=== PATIENT | female | born 1940 | race Caucasian/White ===

== ENCOUNTER 2020-10-02 15:47 | Inpatient (IN) | payer OTHER, MEDICARE ==
[~2020-10-02] VITALS: Ht 149.9 cm; Wt 71.3 kg
--- NOTE | ~2020-10-02 | D ---
[facility] [place] [address] DISCHARGE SUMMARY Name: EDU PICKARD Room #: 51-A [facility] IN M.R.#: [id number] Admission: 10/02/20 Attend Phys: Andres Cruz DO Discharge: 10/22/20 Date of : 40 Report #: [id number] THIS REPORT FOR: cc: CRAIG FARRAR Physician not on staff Andres Cruz DO ~ DATE OF SERVICE: 10/22/2020 INPATIENT PSYCHIATRIC DISCHARGE SUMMARY HOSPITAL COURSE: Please note, the patient was discharged emergently shortly before 5:00 a.m. on 10/22/2020, due to concern for sudden respiratory failure, so there is no discharge mental status exam. ATTENDING AT THE TIME OF DISCHARGE: Hailey Pruitt MD ATTENDING AT THE TIME OF ADMISSION: Andres Cruz DO SOLAR ELECTRIC/PHOTOVOLTAIC INSTALLER ON THE DAY OF DISCHARGE: Shaye Puga MD DISCHARGE DIAGNOSES: Include COVID-19 positive, showing signs of fulminant acute respiratory failure, major neurocognitive disorder, likely Alzheimer's pathology with behavioral disturbance, some improvement. Other morbidities include bronchitis, elevated D-dimer, venous Doppler was negative, chronic kidney disease, stage III, wounds on bilateral leg, rash for 2-3 years. The patient refusing steroid treatment, although she is to start topical steroid, both feet with recent surgery, bilateral shoulder pain, intermittent, diabetes mellitus type 2, hypothyroidism, hypertension. The patient is a no code. The patient was discharged to [address] [place] [address]. Diet and medications will be per the hospitalist. Of note, during the psychiatric admission, the patient was treated with the following: clotrimazole to her perineum and buttocks, olanzapine 7.5 mg p.o. b.i.d., Depakote 750 mg p.o. at bedtime, donepezil 10 mg p.o. at bedtime, methotrexate 7.5 mg weekly. The donepezil, Depakote, olanzapine were all for her dementia and accompanying behavioral disturbance. Also, levothyroxine 100 mcg oral daily, vitamin, calcium with vitamin D, ferrous sulfate, tramadol p.r.n., Pulmicort 0.5 mg inhaled twice daily. SIGNIFICANT LABORATORY RESULTS: This admission are as follows: Last hematology on 10/22/2020, would be H and H 7.3 and 32.3, white count 2.4, platelet count 76. Coags this admission would be INR 1.0, PT 10.1, D-dimer quantitative 4.32. Chemistry this admissions, most recent one, sodium 143, potassium 4.8, chloride 104, bicarbonate 37, anion gap 2, BUN 17, creatinine 1.2. I believe the creatinine had been as high as 1.7 on 09/16/2020, which is actually an improvement. GFR 43. Point of care glucose 139, A1c 6.1. Lactic acid 1.8, calcium 8, magnesium 1.7, total bilirubin 0.5, AST 27, ALT 18, alkaline phosphatase 96. Ammonia less than 10. CK, previous admission, her CK; albumin 2.5. She is quite malnourished. Triglycerides 112, cholesterol 99, LDL 33, HDL [address] [address] DISCHARGE SUMMARY Name: EDU PICKARD Room #: 518A-A [facility] IN M.R.#: [id number] Admission: 08/18/21 Attend Phys: Andres Cruz, DO Discharge: 10/22/20 Date of : 40 Report #: [id number] 44. B12 525. TSH slightly elevated, done on 10/03/2020, 21.166. Urinalysis, most recently on 10/06/2020, showed 1+ protein, trace ketones, 1+ blood. It did have some other abnormalities including bacteria. Culture done on 10/06/2020, showed 3 or more organisms, isolated, results consistent with colonization or contamination. REASON FOR ADMISSION: Back on 10/02/2020 or so is as follows: An 80-year-old female, sent over from [facility]. The patient had been refusing recommendations, not eating or drinking, having agitated outbursts. There was a question of dementia. HOSPITAL COURSE: The patient was admitted to the geriatric psychiatry unit. It quickly became apparent that the patient had at least mild dementia, could not take care of herself. We ran into quite a challenge. Even though her son is her DPOA of the patient, needing Medicaid replacement and facilities have been unable to take her. I did utilize an olanzapine and Depakote approach to stabilize her mood. This was mapped with mixed results. Overall, after the first 10 days in the hospital, staff did notice improvement. She was less irritable, more compliant. Unfortunately, the patient appears to have developed COVID-19 during her admission. She had a PCR done on 10/21/2020, which resulted early in the morning of being positive. She had developed bronchitis symptoms a couple of days before that test and she was discharged to the medical floor due to her oxygen requirements. VITAL SIGNS: At the time of discharge would be, and actually this is at 5:00 a.m., early this morning. So, temperature 97.7, pulse 78, respirations 20, BP 115/43, O2 sat 93%, and it appears to be on room air. PROGNOSIS: For this patient is quite guarded due to her multiple morbidities, dementia, COVID-19. The psychiatry service can serve and consult at the hospitalist's request. By: 2114 [id number] Andres Cruz, DO /nt
[~2020-10-02 15:47] MED LIST: ADVAIR 100-501 EACH BUCCAL; ASPIRIN EC81 M1; ATENOLOL 25 MG25 M1 PO; CALCIUM 600 +1 EAC1 PO; CELEBREX 200 M200 M1 PO; CELEBREX 200 M200 MG PO; COZAAR 50 MG TA50 M2 PO; DIPHENHIST50 MG PO; FIBER625 MG PO; FLONASE 0.05%50 MCG NASAL; FOSAMAX 70 MG T70 M1; GAS-X125 MG PO; GLUCOPHAGE XR500 MG; HYDRALAZINE 5050 MG PO; HYDROCHLOROTHIA25 M2 PO; IRON325 PO; KEFLEX500 MG PO; LISINOPRIL5 MG; LOPERAMIDE 2 MG2 M1 PO; LOPRESSOR25 PO; METFORMIN HCL500 MG PO; NEURONTIN 300300 M1 PO; NEURONTIN600 MG; NEXIUM40 MG PO; SERTRALINE HCL50 MG PO; SYNTHROID50 MCG PO; TRAMADOL 50 MG50 MG PO; ZOCOR 20 MG TAB20 M1 PO
[2020-10-02 22:45] VITALS: BP 162/78
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
[2020-10-03 08:04] LABS: CHOLESTEROL 99 mg/dL (<200); HDL CHOLESTEROL 44 mg/dL (>40); LDL CHOLESTEROL 33 mg/dL (<100); TC:HDL 2.3 Ratio (Not establshd); TRIGLYCERIDE 112 mg/dL (<150); VLDL 22 mg/dL (<40)
[2020-10-03 09:21] VITALS: BP 127/71
--- NOTE | 2020-10-03 11:17 | NUR ---
Care assumed of patient at 0715: Patient seated in dayroom at start of shift. Patient presents with flat affect. Alert and oriented x4. Reports anxiety and depression rated 8/10. Reports that she is here for "help with that". Reports pain to her shoulders due to arthritis. Requested Tramadol which she was taking at home. Order obtained for PRN Tramadol. Medication provided. Patient also reports nausea. Reports she is nauseous "all the time". Poor appetite for breakfast. Participated in morning group. Patient became upset when told that a wound physician would come to see her, states that she only sees her guest specialist for her feet. Feet are currently wrapped bilaterally.
[2020-10-03 19:38] VITALS: BP 97/68
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
[2020-10-04 00:06] LABS: GLYCOHEMOGLOBIN (HGB A1C) 6.1 % (4.8-5.6)
[2020-10-04 09:07] VITALS: BP 128/72
[2020-10-04 10:54] VITALS: BP 127/72
[2020-10-04] MEDS ORDERED: ARICEPT10 M1 PO (11:35)
[2020-10-04] MEDS ORDERED: FOLIC ACID1 MG PO (11:35)
[2020-10-04] MEDS ORDERED: LEVOTHYROXINE88 MC1 PO (11:35)
[2020-10-04] MEDS ORDERED: NEXIUM 40 MG CA40 M1 PO (11:39)
[2020-10-04] MEDS ORDERED: CITALOPRAM HBR40 MG PO (11:39)
[2020-10-04] MEDS ORDERED: MELOXICAM15 MG PO (11:40)
[2020-10-04] MEDS ORDERED: METHOTREXATE 22.5 M1 PO (11:40)
[2020-10-04] MEDS ORDERED: NAMENDA 10 MG T10 MG PO (11:40)
--- NOTE | 2020-10-04 12:40 | NUR ---
1240 RESUMMED CARE FROM OVERNIGHT SHIFT THIS AM, PATIENT IN DAY ROOM COMPLAINING ABOUT THE BREAKFAST. PATIENT ALERT ORIENTED TIMES 4 PATIENT DENIES SI/HI/AH/VH AT PRESENT. PATIENT DOES HAVE DEPRESSION SHE RATES IT A 4 ANXIETY A 10. PATIENTS ABDOMEN SOFT BOWEL SOUNDS PRESENT PATIENTS LUNGS CLEAR PATIENT IS COUGHING LESS WITH BREATHING TREATMENT. PATIENT IS CONSTANTLY COMPLAINING ABOUT EVERYTHING; I TALKED WITH PATIENT AND TOLD HER TO STOP COMPLAINING AND BE GRATEFUL SHE IS GETTING CARES. PATIENT SAT IN GROUP BUT IS NOT REALLY PARTICIPATING. WOUND CARE CAME AND SAW PATIENTS FEET WILL CONTINUE TO MONITOR PATIENT FOR BEHAVIORS AND SAFETY.
[2020-10-04 20:14] VITALS: BP 151/66
--- NOTE | 2020-10-05 00:22 | NUR ---
PATIENT IN COMMON AREA AAOX3. PATIENT IS IRRITABLE AND FUSSING AT SHALE MINER BLASTING. PATIENT STATES THAT SHE IS HAVING SOME PAIN TO HER FEET AND BACK. PRN MEDICATION ADMINISTERED. PT IS ABLE TO CALM DOWN WHEN RN SPEAKS WITH HER. SHE IS COMPLIANT WITH HER MEDICATIONS. STATES THAT SHE IS READY FOR BED. PATIENT IS INCONTINENT AND STAFF ASSISTS HER WITH CLOTHING CHANGE. NO S/S OF DISTRESS NOTED. WILL CONTINUE TO MONITOR.
[2020-10-05 10:34] VITALS: BP 151/66
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
--- NOTE | 2020-10-05 12:31 | NUR ---
Patient care resummed at 0700, patient laying in bed, refused to get up for breakfast, varbally aggressive and disrespecfull to staff, assessment took like an hour because she constantly complained about everything, her lungs are clear, active bowel sound, she is incontinent of bladder and bm, she ambulate on dayo chair/wheel chair, got her up for lunch but she complained about the food. Denied si/hi at this time. will continue to monitor patient
--- NOTE | 2020-10-05 16:21 | NUR ---
artificial marble worker met with pt. in dayroom. Pt. expressed having pain and not having heard from anyone to have the pain addressed. Pt. wants to go to a half-way. When asked what half-way she would like to go to, pt. stated [facility]. Pt. stated she was previously there and liked it. Pt. states she was also previously at [facility] and did not like it there and would not go back.
[2020-10-05 19:29] VITALS: BP 116/65
--- NOTE | 2020-10-06 04:55 | NUR ---
Assumed pt's care this pm shift. Pt alert and oriented. Cooperative with assessment and medication. Easily irritable. Pt declined wound care this shift. Voicing " I do not want you touching it". Pt remained in bed, refused to turn. Fall precaution in place. Will continue to monitor.
[2020-10-06 09:17] VITALS: BP 130/68
[2020-10-06 09:45] LABS: URINE BILIRUBIN NEGATIVE (Negative); URINE BLOOD 1+ (Negative); URINE CLARITY CLOUDY; URINE COLOR YELLOW; URINE GLUCOSE-RANDOM* NEGATIVE (Negative); URINE KETONES TRACE (Negative); URINE LEUKOCYTES-REFLEX 3+ (Negative); URINE NITRITE-REFLEX NEGATIVE (Negative); URINE PROTEIN (DIPSTICK) 1+ (Negative); URINE UROBILINOGEN 0.2 E.U./dl (0.2-1.0)
[2020-10-06 10:04] LABS: CASTS None Seen /LPF (None Seen); SQUAMOUS >10 Many /LPF (0-3); URINE RBC 3-10 Few /HPF (NONE SEEN); URINE WBC-REFLEX 6-15 Few /HPF (0-5)
[2020-10-06 10:05] LABS: BACTERIA-REFLEX 1-9 Few /HPF (None Seen); CRYSTALS None Seen /LPF (None Seen)
[2020-10-06 10:19] VITALS: BP 130/68
--- NOTE | 2020-10-06 12:58 | NUR ---
1258 RESUMMED CARE FROM OVERNIGHT SHIFT THIS AM, PATIENT IN ROOM COMPLAINING ABOUT EVERYTHING. PATIENT DID NOT WANT TO GET PUT OF BED STATES SHE HURTS TO BAD. PATIENT WOULD NOT LET ME CHANGE THE BANDAGES ON FEET SHE STATES HER AUTOMOBILE SALESMAN; STATES THE BANDAGES CANNOT BE CHANGED BECAUSE OF THE SKIN GRAFTS. PATIENT ALERT ORIENTED TIMES 4 PATIENT DENIES SI/HI/AH/VH AT PRESENT. PATIENTS ABDOMEN SOFT BOWEL SOUNDS PRESENT. PATIENT IS VERY DISRESPECTFUL TO STAFF I TRIED TO APPEASE PATIENT SHE COMPLAINS ABOUT THE FOOD, TELLS US NOT TO BOTHER HER. SHE STATES THIS HOSPITAL IS [facility] AND SHE WANTS TO GET OUT OF HERE PATIENT DOES NOT PARTICIPATE IN GROUPS. WILL CONTINUE TO MONITOR PATIENT FOR SAFETY AND BEHAVIORS.
[2020-10-06 19:57] VITALS: BP 120/65
--- NOTE | 2020-10-07 01:49 | NUR ---
Assumed pt's care beginning of this pm shift. Pt was in her room laying on her bed from beginning of shift. Irritable and fuzzy but cooperative with assessment and medication. Pt declined wound care again this shift, voicing that it had to be changed by her life insurance sales agent. Nursing educated pt that wound care orders are in place for nurses to change the dressing. Pt still declined care. Pt complained of pain to bilateral feet. Tramadol given. Pt remains in bed, sleeping. Fall precautions in place.
--- NOTE | 2020-10-07 11:00 | HC ---
[facility] [place] [address] CONSULTATION Name: EDU PICKARD Room #: 518A-A ADM IN M.R.#: [id number] Admission: 10/02/20 Attend Phys: Andres Cruz DO Discharge: Date of : 40 Report #: [id number] THIS REPORT FOR: cc: CRAIG FARRAR Physician not on staff Jesus Alberto Cano MD ~ DATE OF SERVICE: 10/03/2020 CHIEF COMPLAINT: Bilateral toe ulcerations. HISTORY OF PRESENT ILLNESS: This is an 80-year-old female patient who was admitted to the geriatric psych unit for aggression and suicidal ideation. She has been declared incompetent to make her own decisions by the psychiatrist, Dr. Cruz here at [facility]. She has had a history of diabetic ulcers to the right second toe and a surgical incision to her left medial foot. I have been asked to see her with regard to wound care. The patient has been reluctant to allow any dressing changes or even examination of her feet. However, Dr. Cruz, the psychiatrist had a conference phone call with the patient's son and DPOA, who specifically authorized and requested that her feet be cared for while here at the hospital. 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 ALLERGIES: No known drug allergies. MEDICATIONS: vitamins, atorvastatin, calcium and vitamin D, ferrous sulfate, fluticasone nasal spray, tramadol, budesonide, levothyroxine, acetaminophen, and ondansetron. ALLERGIES: None. FAMILY HISTORY: Unknown. REVIEW OF SYSTEMS: Not obtainable as the patient has significant dementia and agitation and is uncooperative. PHYSICAL EXAMINATION: VITAL SIGNS: The patient's vital signs at this time include temperature 36.3, pulse 88, respiration of 17, and blood pressure of 127/71. GENERAL: This is a chronically ill-appearing female patient who appears to be older than her stated age. HEENT: Head normocephalic. Nose and throat are clear. NECK: Supple. [facility] [address] [place] [address] CONSULTATION Name: EDU PICKARD Room #: 518A-A ADM IN [facility].#: [id number] Admission: 10/02/20 Attend Phys: Andres Cruz DO Discharge: Date of : 40 Report #: [id number] LUNGS: Diminished. HEART: Irregular. ABDOMEN: Soft. EXTREMITIES: Lower extremities demonstrate palpable distal pulses and the feet are warm and dry. She has a diabetic type ulceration to the dorsal aspect of the right second toe. She appears to have a closed surgical incision to her left medial foot, does not appear to be infected or draining. LABORATORY DATA: Include glucose 127, triglycerides 112, cholesterol 99. TSH of 21.1. CLINICAL IMPRESSION: 1. Diabetic ulceration, the right second toe. 2. Surgical incision of left foot appears to be closed. 3. Alzheimer dementia with aggressive features. 4. Anxiety, depression. 5. Hypertension. 6. Hyperlipidemia. 7. Significant hypothyroidism. 8. Type 2 diabetes mellitus. RECOMMENDATIONS: At this point in time, we will recommend moisturizer to dry skin of both lower extremities and then Xeroform to the ulcer with Kerlix and tape to be changed daily. The left foot can be simply observed. We are going to leave the Steri-Strips in place and then elevate to maximize edema control. She will need aggressive nutritional support. Internal medicine is following her other medical issues. I appreciate being asked to see her in consultation. <ELECTRONICALLY SIGNED> By: Jesus Alberto Cano MD 10/07/20 1100 [id number] Jesus Alberto Cano MD /nt
[2020-10-07 11:04] VITALS: BP 138/82
--- NOTE | 2020-10-07 12:20 | NUR ---
1220 RESUMMED CARE FROM OVERNIGHT SHIFT THIS AM, PATIENT SITTING IN THE DAY ROOM COMPLAINING LOUDLY. PATIENT ALERT ORIENTED TIMES 4 SHE IS DIFFICULT TO WORK WITH. PATIENT REFUSED HER 11:00 DOSE OF OLANZAPINE SO IM BACKUP GIVEN; I TOLD PATIENT I WILL BE CHANGING HER BANDAGES ON HER FEET. PATIENT START YELLING IN THE DAY ROOM AND UPSETTING THE OTHER PATIENTS. PATIENTS ABDOMEN SOFT BOWEL SOUNDS PRESENT PATIENTS LUNGS CLEAR. PATIENT IS VERY DISRESPECTFUL TO STAFF AND ALWAYS THREATEN TO [place] US. WILL CONTINUE TO MONITOR PATIENT FOR SAFETY AND BEHAVIORS.
[2020-10-07 20:10] VITALS: BP 125/70
[2020-10-07 20:19] VITALS: BP 125/70
--- NOTE | 2020-10-08 05:16 | NUR ---
PATIENT SAT UP IN DINING ROOM IN [place]AIR THIS PAST EVENING. SHE HAD AN HS SNACK. SHE TOOK HER MEDS WHOLE WITH WATER AND WITHOUT INCIDENT. PATIENT REQUESTED TO GO TO BED AFTER MEDS WERE TAKEN. PATIENT IS ASSIST X 2-3. SHE IS UNABLE TO BEAR MUCH WEIGHT. SHE HAS DRESSINGS ON BILATERAL FEET WITH DRESSING CHANGE DAILY. PATIENT IS INCONTINENT. SHE IS A/0X3-4. SHE DENIES PAIN, SI/HI/AVH. PT RESTING IN BED WITH EYES CLOSED. BED IN LOW POSITION AND BED ALARM IS ON. CONTINUING TO MONITOR.
[2020-10-08 07:35] VITALS: BP 121/60
--- NOTE | 2020-10-08 12:46 | NUR ---
Resummed patient care 0700, patient was still in bed sleeping, refused to get up for breakfast, she was irritable during assessment, active bowel sound, breath sound clear, regular heart rate, color pink with brisk capillary refill she took her medication whole, got her clear up, wound chanaged as ordered, patient refused to eat lunch. She ambulate with walker/dayo chair, incontinent of bladder and bowel. denied pain, si/hi, fall precaution in place, will continue to monitor for safety
--- NOTE | 2020-10-08 13:24 | NUR ---
APS worker Josie, called to inquire about patient. Had received calls on patient prior to hospitalization in regard to her well-being. Reviewed case with Josie. Stated a a SW from patient's PCP (Dr. Truong) thought that Eric Montano expressed interested in her once she has been discharged. automotive worker's name is Luann Abbott at [facility] [phone]
[2020-10-08 20:10] VITALS: BP 115/81
[2020-10-08 20:33] VITALS: BP 115/81
--- NOTE | 2020-10-09 01:28 | NUR ---
PATIENT HAS BEEN IN BED SINCE BEGINNING OF THE SHIFT. SHE HAS BEEN COMPLAINING AND DEMANDING. WHEN YOU GIVE HER SOMETHING SHE ASKED FOR THEN SHE COMPLAINED THAT IS WAS ALL WRONG AND NOTHING IS DONE RIGHT. SHE DENIES PAIN, SI/HI/AVH. PATIENT REPOSITIONED. BARRIER CREAM PLACED ON BUTTOCKS D/T PRESSURE ABRAISION. PATIENT DID NOT LET THIS NURSE TOUCH HER FEET TONIGHT. SHE WAS VERY HATEFUL VERBALLY. ICE WATER PLACED BY PATIENT'S BEDSIDE SO SHE CAN REACH NEEDED. SHE DID TAKE HER PILLS WHOLE WITH WATER. BED IN LOW POSITON AND BED ALARM IS ON. ROUTINE ROUNDS TO ASSESS SAFETY AND STATUS OF PATIENT.
--- NOTE | 2020-10-09 06:51 | NUR ---
PATIENT HAS 2 DENUDED AREAS ON BUTTOCKS FROM IRRITATION. AREAS CLEANED THRU NIGHT DURING INCONTINENCE CARES AND BARRIER CREAM APPLIED. AT THIS 0600 CHECK AREA HAD SMALL AMOUNT OF BLOOD NOTED. PATIENT WITH REDNESS ALSO IN GROIN AREA AND ABDOMINAL FLAP WHICH CONTINUES TO BE WASHED, CLEANED AND BARRIER CREAM APPLIED. UNDER BILATERAL BREAST TREATED ALSO.
[2020-10-09 09:39] VITALS: BP 125/51
--- NOTE | 2020-10-09 13:11 | NUR ---
PATIENT WAS IN BED ASLEEP WHEN CARE ASSUMED, SHE DECLINE TO GET OUT OF BED FOR BREAKFAST. MORNING MEDICATION GIVEN AT BED SIDE, WELL TOLERATED. PATIENT DENIES SUICIDAL IDEATION, CHOOSE NOT TO RESPOND TO FURTHER ASSESSMENT QUESTIONS. PATIENT IS RUDE, HOSTILE, VERBALLY ABUSIVE TOWARDS THIS NURSE, SHE DECLINE WOUND CARE, "I DON'T WANT YOU TO LOOK AT MY LEGS, OR TOUCH THEM, ITS MY RIGHT". PATIENT IS REALLY IRRITABLE "WHO WANT TO BE IN THIS HALF-WAY". PATIENT REDIRECTED THAT SHE IS IN THE HOSPITAL, AND NOT HALF-WAY. SHE LATER AGREED TO GET OUT OF BED FOR LUNCH, STILL CONTINUE TO DECLINE WOUND CARE. SHE WAS ASSISTED TO [facility] BY THIS SURGICAL COORDINATOR, AND ANOTHER STAFF. AFFECT IS SAD/FLAT, MOOD IS IRRITABLE/HOSTILE. NO SIGN OF ACUTE DISTRESS NOTED AT THIS TIME, WILL CONTINUE TO REDIRECT, AND MONITOR FOR SAFETY.
[2020-10-09 19:59] VITALS: BP 145/108
--- NOTE | 2020-10-10 04:52 | NUR ---
PATIENT RESTING IN COMMON AREA AAOX3. PATIENT HAS MANY COMPLAINTS REGARDING HER INCONTINANCE. SHE COMPLAINS OF PAIN TO HER NECK AND BACK. SHE IS COMPLIANT WITH HER MEDICATIONS. STATES THAT SHE DOES NOT KNOW WHY SHE WAS ADMITTED HERE THAT SHE IS NOT PSYCHOTIC. ASKED PATIENT IF STAFF COULD LOOK AT HER FEET WOUNDS. PT SAID THAT NOBODY CAN LOOK OR TOUCH HER FEET BECAUSE HER DOCTOR TOLD HER SO. VITAL SIGNS STABLE. WILL CONTINUE TO MONITOR FOR CHANGES IN STATUS.
[2020-10-10 09:32] VITALS: BP 121/91
--- NOTE | 2020-10-10 10:57 | NUR ---
RT Progress Note- Nikki has been limited in participation in the milieu and recreation therapy groups throughout her first week of admission. Danna is often uncooperative and rude to staff which is disruptive to the group if she is willing to attend. She speaks over other patients and is unwilling to allow for redirection. During one to one attempts, she is quick to anger when each need she demands cannot be met such as "fix my back, call my toe doctor, get me a pain pill." Though she is highly uncooperative, she has participated in a very small amount of groups and appears to enjoy listening to some music such as Gayle Hunter as well as reminisce about younger years. Recreation Therapy team will continue to encourage further positive participation and progress towards goals.
--- NOTE | 2020-10-10 11:19 | NUR ---
Dressings changed to bilateral feet. Patient consistently refusing despite orders and DPOA being activated. APPLIQUE SEWER and RN were able to change dressings and apply liberal amount of lotion to bilateral lower extremities. Weekly picture taken and placed in chart. Graft in place with steri strips to left foot. Stretch gauze changed to re-enforce graft dressing. Open are to right foot 2nd toe cleansed, Xeroform applied and wrapped with stretch gauze. Granulation present to wound bed. No drainage present. Appears to have improved. Dressings intact. Patient tolerated well.
--- NOTE | 2020-10-10 13:48 | NUR ---
Alert and orientated to person, place and year. Adamantly refusing to have wound dressings changed this AM. Becomes agitated. Elana, nurse finance effectiveness manager cleaned wounds, took pictures and did drsg changes. Denies SI/HI. Breath sounds clear. Reg HR auscultated. Color pink with brisk capillary refill and palpable peripheral pulses with exception of pedal pulses which she refused to be assessed. Incontinent of yellow urine per pad, changed. Active bowel sounds over soft, rounded abdomen, continent of BM later in AM. Top layer of skin excoriated on buttocks, cleaned and Zpaste applied. Able to bear wt for several seconds, requires assist of 2 staff to get to chair and toilet. Son and DPOA called for update. States he would like to talk to pt around 5 PM when he has more time. Pt states she has buttock pain, knee pain and shoulder pain, rates it an 8. Tramadol given PO. Pt appears more comfortable and sleepy but states pain remains an 8. Currently in day room visiting with animals.
[2020-10-10 20:10] VITALS: BP 136/95
--- NOTE | 2020-10-11 01:13 | NUR ---
PATIENT RESTING IN ACTIVITY AREA TALKING ON THE PHONE. PATIENT WAS BEING LOUD AND DRUDE TO WHOMEVER SHE WAS TALKING TO. PATIENT CONTINUES TO BE IRRITABLE AND AGITATED. VOICES COMPLAINTS WITH HIGH FREQUENCY. SHE STATES THAT SHE IS GETTING OUT OF HERE IN THE MORNING COME HELL OR HIGH WATER. SHE WAS CONPLIANT WITH HER MEDICATION BUT STATES THAT THEY ARE NOT DOING ANYTHING FOR HER. CONTINUES TO COMPLIAIN OF PAIN TO LEGS, NACK AND NOW BACK.
[2020-10-11 09:23] VITALS: BP 111/42
--- NOTE | 2020-10-11 16:37 | NUR ---
Alert and orientated X3-4. Denies SI/HI. States buttocks hurt, Tramadol given PO. Irritated and frustrated, yelling at staff at times. Breath sounds clear. Reg HR auscultated. Color pale pink with brisk capillary refill and palpable peripheral pulses. Incontinent of yellow urine and medium brown stool. Area from posterior end of external labia to upper buttocks excoriated peeling in places and with erythema, photographed and placed in chart. Cleaned with NS and barrier cream applied. Dr. Cruz notified, consulted with wound team. Wound team assessed and orders placed. Fungal cream applied and waffle cushion place. Active bowel sounds over large, rounded abdomen. Able to stand and bear wt with assistance of 1-2 staff. Currently sleeping in recliner in day room without s/o distress.
[2020-10-11 19:31] VITALS: BP 134/63
[2020-10-11 22:43] VITALS: BP 134/63
--- NOTE | 2020-10-12 00:19 | NUR ---
Pt is sleepy this shift, she did not take her medication, she would wake up but would go right back to sleep, pt is turned Q 2hours, with frequent monitoring.
[2020-10-12 09:05] VITALS: BP 152/92
--- NOTE | 2020-10-12 13:58 | NUR ---
Alert and orientated X3. Denies SI/HI. States bottom feels much better this AM until she sat in chair, then pain returned. Given scheduled Tylenol with good results. Offered to lay her down after group until lunch but she refused. Fussy and demanding at times. Spoke with daughter at length via phone. Breath sounds clear. Reg HR auscultated. Color pink with brisk capillary refill and palpable peripheral pulses. Incontinent of yellow urine X3 and smear of stool. Buttocks excoriated with several areas of ulceration, slightly less red than yesterday. Cleaned with NS and antifungal cream/zpaste applied. Ulcer per R middle toe cleaned with NS, xeroform and kerlix applied. Steristrips dry and intact per L foot, kerlix applied. Lotion applied to lower legs bilaterally prior to applying kerlix. Currently sitting in dining room watching TV with peers.
[2020-10-12 19:59] VITALS: BP 123/76
--- NOTE | 2020-10-13 02:55 | NUR ---
PATIENT RESTING IN COMMON AREA AAOX3. STATES THAT SHE IS HAVING PAIN AGAIN TO HER BOTTOM. PT STATES THAT SHE IS TIRED OF THAT AREA HURTING. PATIENT WAS COMPLIANT WITH HER MEDICATIONS. PATIENT WAS HELPED TO HER ROOM TO BE CLEANED UP. NOTED EXCORIATION TO INGUINAL AREA WELL SKIN BREAKDOWN TO BOTTOM THAT NOW EXHIBITS SOME MILD BLEEDING. AREA WAS CLEANSED AND BARRIER CREAM WAS APPLIED. PT DENIES ANY OTHER NEEDS. WILL CONTINUE TO MONITOR PATIENT FOR CHANGES IN STATUS.
--- NOTE | 2020-10-13 18:50 | NUR ---
RESISTIVE WITH GETTING UP OUT OF BED THIS AM-WHEN IN CHAIR WANTS TO BE IN BED-WHEN IN BED YELLING SHE WANTS TO BE IN CHAIR-MULTIPLE COMPLAINTSA AND NEGATIVE COMMENTS RE FOOD,STAFF,SCHEDULE ETC-REPOSITIONED FOR COMOFRT Q 2 HOURS -BARRIER CREAM APPLIED-MULTIPLE SMALL LOOSE STOOLS CAUSING INCREASED REDNESS AND IRRITATION. DID TAKE ULTRAM 50MG PO PRN FOR REPORTED COCYX PAIN AT 1700
[2020-10-13 19:54] VITALS: BP 121/65
[2020-10-13 20:30] VITALS: BP 121/65
--- NOTE | 2020-10-14 03:46 | NUR ---
PATIENT HAS BEEN IN BED SINCE BEGINNING OF SHIFT. SHE SAT UP IN BED TO TAKE HER HS MEDS WHOLE WITH WATER. PATIENT DID NOT WANT NURSE TO TOUCH HER FEET AND STATES THEY ARE FINE. SHE HAS DRESSING ON BILATERAL TOES DRY AND INTACT. HER OSMANI AREA AND BUTTOCKS WITH SOME DENUDING FROM YEAST, PRESSURE FROM SITTING AND LAYING. FUNGAL CREAM, AND SCHEDULED OINTMENT APPLIED. FREQUENT INCONTINENCE CHECKS DONE TO KEEP AREA CLEAN. PATIENT WAS CALM AND COOPERATIVE FOR THE MOST PART. SHE STATES SHE IS FRUSTRATED THAT SHE IS STILL HERE. PATIENT HAS BEEN SLEEPING MOST OF NIGHT. DENIES SI/HI/AVH. SCHEDULED TYLENOL FOR DISCOMFORT. BED IN LOW POSITION AND BED ALARM IS ON.
[2020-10-14 10:13] VITALS: BP 122/68
[2020-10-14 10:14] VITALS: BP 122/68
--- NOTE | 2020-10-14 10:20 | NUR ---
1020 assumed care of pt from overnight nurse. pt alert times 2. pt ate breakfast and took am nedications w no issue. pt has daily wound dressings to feet. pt has non productive cough. pt incont times 1. pt on carb control diet. pt ast of 2 and gerichair. will cont to monitor for safety and infection.
--- NOTE | 2020-10-14 18:41 | NUR ---
1700 PT REFUSED TO HAVE HER DRESSING CHANGES TO BOTH FEET. THIS NURSE ATTEMPTED TO CHANGE DRESSINGS TIMES 3. WILL CONT TO ASSESS PT FOR NEEDS AND SAFETY.
[2020-10-14 20:09] VITALS: BP 108/56
--- NOTE | 2020-10-14 23:09 | NUR ---
PATIENT RESTING IN COMMON AREA AAOX3. STATES THAT HER BUTTOCK HAS BEEN FEELING BETTER BUT IS HURTING 8/10 AT THIS TIME. STATES THATS SHE WESLEY SNOT FEEL THAT SHE IS GETTING ANY BETTER. STATES THAT HER MEDICATIONS KEEP GETTING CHANGED. NOTICED PATIENT TALKING TO HERSELF ON A COUPLE OF OCCASSIONS TONIGHT. WHEN ASKED IF SHE WAS TALKING TO SOMEBODY SHE STATES THAT SHE WASNT TALKING. AT ONE POINT SHE WAS HEARD TALKING ABOUT A CHEESEBURGER. PT EXHIBITS NO S/S OF DISTRESS. WILL CONTINUE TO MONITOR FOR CHANGES IN STATUS.
[2020-10-15 10:11] VITALS: BP 147/67
[2020-10-15 11:48] VITALS: BP 156/76
--- NOTE | 2020-10-15 12:35 | NUR ---
1235 RESUMMED CARE FROM OVERNIGHT SHIFT THIS AM, PATIENT IN ROOM QUIET. WE GOT PATIENT UP FOR BREAKFAST TOOK MEDICATION WITHOUT INCIDENCE. PATIENT ALERT ORIENTED TIMES 4 PATIENT STATES SHE FEELS HOPELESS AND JUST WANTS TO GET OUT OF HERE. PATIENT DENIES SI/HI/AH/VH AT PRESENT PATIENT DOES HAVE ANXIETY AND DEPRESSION SHE RATES A 6. PATIENTS ABDOMEN SOFT BOWEL SOUNDS PRESENT PATIENTS LUNGS CLEAR. PATIENT IS SOMETIMES FUSSY SHE DOES PARTICIPATE A LITTLE IN GROUPS. WILL CONTINUE TO MONITOR PATIENT FOR SAFETY AND BEHAVIORS.
[2020-10-15 20:13] VITALS: BP 125/78
--- NOTE | 2020-10-16 03:52 | NUR ---
PATIENT RESTING IN THE COMMON AREA WATCHING TV. PATIENT IS MORE RELAXED THIS EVENING. SHE STATES THAT SHE IS HAVING PAIN 6/10 TO HER BOTTOM. SHE TOOK MEDICATIONS WITHOUT PROMPTS TONIGHT. DID NOT MAKE ANY NEGATIVE COMMENTS TOWARDS PEERS OR STAFF. WENT TO BED AROUND 2100 AND WAS ABLE TO SLEEP THROUGH THE NIGHT. NO EVIDENCE OF NIGHT TERRORS OR TALKING IN HER SLEEP NOTED TONIGHT.
[2020-10-16 08:57] VITALS: BP 106/65
--- NOTE | 2020-10-16 11:43 | NUR ---
RT Progress Note- Nikki has remained present in the milieu, but does not actively engage with peers. She is present in most recreation therapy groups but also does not actively engage in programming. Nikki does not readily welcome conversation and social interaction which seems to be her baseline at this time. BUSINESS SPECIALIST will continue to encourage patient's presence in groups and provide activity she can be benefited by listening.
--- NOTE | 2020-10-16 14:00 | NUR ---
Referrals sent to the following: [facility]
--- NOTE | 2020-10-16 15:03 | NUR ---
PATIENT WAS IN BED SLEEPING WHEN CARE ASSUMED, MORNING MEDICATION GIVEN AT BEDSIDE, WELL TOLERATED. PATIENT ASSISTED UP IN [facility] BY TWO STAFF FOR LUNCH, APPETITE FAIR, SHE IS ABLE TO FEED SELF. PATIENT DECLINE WOUND CARE TODAY. INCONTINENT CARE PROVIDED PER STAFF, BARRIER CREAM APPLIED. PATIENT DENIES SUICIDAL/HOMICIDAL IDEATION, SHE DENIES DEPRESSION/ANXIETY, RATES BACK PAIN 3/10, GETS SCHEDULE TYLENOL. PATIENT IS A&O X 2-3, FORGETFUL, AND CONFUSED AT TIMES. PRESSURE REDUCING CUSHION -(ROHO) IN PLACE FOR POSITIONING, WELL TOLERATED. AFFECT IS FLAT/BLUNTED, MOOD IS DEPRESSION, NO SIGN OF ACUTE DISTRESS NOTED AT THIS TIME. PATIENT CURRENTLY IN DAYROOM, PARTICIPATED IN GROUP THERAPY, WILL MONITOR FOR SAFETY.
[2020-10-16 20:00] VITALS: BP 122/84
[2020-10-16 20:10] VITALS: BP 122/84
--- NOTE | 2020-10-17 04:56 | NUR ---
PATIENT SAT UP IN DINING ROOM THIS EVENING UNTIL BED TIME. SHE HAS BEEN CALM AND COOPERATIVE. PATIENT REQUESTED TRAMADOL FOR BACK PAIN AND TOOK TRAMADOL 50 MG PO AT 0130. PATIENT STILL WITH SKIN DENUDING AND PINKNESS AND FUNGAL INFECTION IN OSMANI AREA. INCONTINENCE CARES DONE NEEDED AND FUNGAL CREAM APPLIED TO AREA. PATIENT REFUSED TO LET NURSE LOOK AT HER TOE WOUNDS. PT DENIES SI/HI/AVH. SHE WAS UP HALF THE NIGHT TALKING TO HER ROOM MATE OR HERSELF. SHE IS A/0 X 2-3. BED IN LOW POSITION AND BED ALARM IS ON. CONTINUING TO MONITOR.
--- NOTE | 2020-10-17 05:08 | NUR ---
PATIENT WITH A DRY BARKY COUGH OFF AND ON THRU NIGHT. WATER AT BEDSIDE AND HELPED PATIENT WITH IT. NO FEVER. CONTINUING TO MONITOR.
[2020-10-17 10:06] VITALS: BP 109/55
[2020-10-17 10:18] VITALS: BP 109/55
--- NOTE | 2020-10-17 12:45 | NUR ---
1245 RESUMMED CARE FROM OVERNIGHT SHIFT THIS AM, PATIENT IN ROOM [facility]. PATIENT BROUGHT TO DAY ROOM FOR BREAKFAST AND GROUPS, PATIENT ATE BREAKFAST TOOK MEDICATION WITHOUT INCIDENCE. PATIENT DENIES SI/HI/AH/VH AT PRESENT. PATIENT ALERT ORIENTED TIMES 3-4 PATIENTS ABDOMEN SOFT BOWEL SOUNDS PRESENT. PATIENTS LUNGS CLEAR DR RODRIGUEZ PUT AN ORDER FOR WOUND CARE TO SEE PATIENTS BUTTOCK REDNESS. NOT GETTING BETTER WITH BARRIER CREAM OR FUNGAL CREAM. PATIENT HAS NOT DISPLAYED ANY BEHAVIORS THIS SHIFT; WILL CONTINUE TO MONITOR PATIENT FOR SAFETY AND BEHAVIORS.
--- NOTE | 2020-10-17 16:16 | NUR ---
[facility]
[2020-10-17 19:30] VITALS: BP 131/80
[2020-10-17 19:48] VITALS: BP 131/80
--- NOTE | 2020-10-18 03:11 | NUR ---
Assumed care on 10/17/20 @ 190, seated in the day room at a table, HRRR, Lungs CTA bilat, ABD n x 4Q over a round abdomen. Denies Depression, anxiety, SI/HI, AH/VH. Reports that her only pain is her bottom. Will continue applying antifungal cream as ordered. Last bm noted as 10/16. A&Ox3-4. Patient on Carb controlled diebetic diet. Chair and bed alarms used. Will continue to monitor for comfort and safety as per unit protocol.
[2020-10-18 10:26] VITALS: BP 109/67
--- NOTE | 2020-10-18 15:34 | NUR ---
ERICK sent referrals to the following: [facility]- decined due to Pt not compliant and concerns about the Pt's anxiety and behaviors. [facility]- declined due [facility] being [facility] an [facility] hold [facility]- declined due to not being able to accept any Pt's with Medicaid or Medicare until State visits. [facility]
--- NOTE | 2020-10-18 16:24 | NUR ---
ERICK called Juan C concerning placement search. ERICK informed Juan C ofthe facilities that have declined the Pt. Also the facilites that have not yet responded with a decision. Juan C was disappointed that [facility] declined the Pt. ERICK explained the reason [facility] gave for the decline. ERICK explained that this is common after facilities recieve clincal information ERICK informed a referral was sent to [facility] and they may be intrested. Juan C stated he was not sure about [facility]. This was due to him hearing about other people's experience with the facility. ERICK informed that if the facility accepted and there were no other choices, the Pt would need to discharge. ERICK informed if unhappy with care at any facility the family should work with the facility on the matter. Juan C then went on to ask about the wound on the Pt's bottom. ERICK informed wound care was consulted and read Juan C the recommedations from the consult. ERICK informed Pt is using the ROHO in an effort to prevent worsening. Juan C seemed satisfied with this information. There were no other questions or concern during this call. ERICK will continue to follow
--- NOTE | 2020-10-18 17:10 | NUR ---
Alert and orientated x 3. Calm, cooperative and compliant. Sat most of day in dayo or WC. Participating in groups and watching TV. Denies SI/HI. Breath sounds clear. Reg HR auscultated. Color pink with brisk capillary refill and palpable peripheral pulses. Incontinent of yellow urine and small brown stool. Ulcer per R middle toe healing, cleaned with NS and drsg applied. Steristrips intact per L foot, cleaned and redressed. Large circular pink patches on shins bilaterally, less red than last week with several closed papules with cloudy/white fluid inside. Able to stand for several minutes and take several steps with assistance, steady on feet. Sat on waffle cushion all day. YUNG hose applied mid afternoon per order, states they are uncomfortable especially on L leg. Currently eating dinner with peers without s/o distress.
[2020-10-18 20:29] VITALS: BP 131/62
--- NOTE | 2020-10-18 22:35 | NUR ---
Pt is alert and oriented x 3, pt was sitting in dayroom and was ready to go to bed. received her maintainance breathing tx. Assist to bed x 2, Pleasant but occasional will get upset with nurse. Took her medications whole. Wants to be independent with most tasks. Lungs clear, but has a dry cough. Denies SI/HI/AH/VH, Cassandra care provided and cream applied to buttocks. will continue to monitor through out shift.
[2020-10-19 10:02] VITALS: BP 106/52
--- NOTE | 2020-10-19 13:46 | NUR ---
Sleepy this AM. In recliner in dining room. Alert and orientated X 4. States she has no pain this AM. Denies SI/HI. Able to stand with assistance and take several steps. Breath sounds clear. Sporadic congested cough, non productive. Reg HR auscultated. Color pink with brisk capillary refill and palpable peripheral pulses. Nonpitting edema in lower legs. Continent of yellow urine per toilet. Active bowel sounds over large rounded abdomen. States she had BM 2 days ago. Ulcer per R middle toe cleaned with NS and dressed with xeroform and kerlix gauzkostas marroquin.
[2020-10-19 18:20] LABS: ABSOLUTE NEUTROPHILS 9.4 thou/uL (1.4-8.2); BASOPHILS 0.3 % (0.0-2.0); EOSINOPHILS 1.2 % (0.0-3.0); HEMATOCRIT 36.6 % (37.0-47.0); HEMOGLOBIN 11.6 gm/dL (12.0-15.0); LYMPHOCYTES 18.1 % (24.0-44.0); MCH 31.1 pg (26.0-34.0); MCHC 31.6 g/dL (28.0-37.0); MCV 98.6 fL (80.0-100.0); MONOCYTES 5.4 % (1.0-8.0); PLATELET COUNT 118 thou/uL (150-400); RBC 3.71 mil/uL (4.20-5.00); RDW 18.5 % (10.5-14.5); WBC 12.5 thou/uL (4.0-11.0)
[2020-10-19 18:44] LABS: ALBUMIN 2.5 g/dL (3.4-5.0); CALCIUM 8.3 mg/dL (8.5-10.1); CREATININE 1.4 mg/dL (0.6-1.0); MAGNESIUM 1.7 mg/dL (1.8-2.4); POTASSIUM 4.1 mmol/L (3.5-5.1); TOTAL BILIRUBIN 0.5 mg/dL (0.2-1.0); TOTAL PROTEIN 6.6 g/dL (6.4-8.2)
[2020-10-19 18:50] LABS: ANISOCYTOSIS 2+; MACROCYTES 1+; POLYCHROMASIA OCCASIONAL
[2020-10-19 19:26] VITALS: BP 133/60
--- NOTE | 2020-10-19 19:45 | NUR ---
Telephone call to Jennifer BOSE to report results of labs and shoulder xray, D-Dimer 4.32, She will consult with Dr. Hernadez for next steps. will continue to follow. Pt lungs are clear, still has cough, no shortness of breath noted currently.
--- NOTE | 2020-10-20 00:09 | NUR ---
New orders for Doppler US, Ceftriaxone IM reconstitute with Lidocaine, Lovenox and UA, US completed, Ceftriaxone and lovenox given. Pt reports or I remember getting theses inj after I had my Knee surgery. The only thing not collected is her UA, she is Alert/oriented x 3, she still has moments when she gets upset but she did converse with this nurse more this evening, we talked about her health and the concerns, we joked about different subjects. Lungs are clear, no wheezing noted on this shift but she did have wheezing noted on day shift, the non productive cough remains. ashley care given and cream applied to her buttocks. Will continue to monitor throughout shift.
[2020-10-20 07:22] VITALS: BP 116/91
--- NOTE | 2020-10-20 10:58 | NUR ---
ASUMMED PATIENT CARE 0700, PATIENT SITTING ON THE VERÓNICA CHAIR IN THE DAY ROOM, SHE ATE BREAKFAST, ALERT AND ORIENTED X3,SHE WAS CALM AND COCOPERATIVE, ASSESSEMENT COMPLETED, ACTIVE BOWEL SOUND, BREATH SOUND CLEAR, REGULAR HR, RR EVEN NONLABOURED RA, COLOR BRISK WITH CAPILLERY REFILL, NO EDEMA NOTED, NO NEW WOUND, PATIENT AMBULATE ON VERÓNICA CHAIR, SHE IS INCONTINENT OF BLADDER AND BOWEL. SHE IS PLEASENT TODAY, PATICIPATED IN GROUPS, SHE DENIES SI/HI, FALL PRECAUTION IN PLACE, WILL CONTINUE TO MONITOR PATIENT FOR SAFETY
[2020-10-20 13:31] LABS: ABSOLUTE NEUTROPHILS 7.4 thou/uL (1.4-8.2); BASOPHILS 0.3 % (0.0-2.0); EOSINOPHILS 0.8 % (0.0-3.0); HEMATOCRIT 36.4 % (37.0-47.0); HEMOGLOBIN 11.9 gm/dL (12.0-15.0); LYMPHOCYTES 15.4 % (24.0-44.0); MCH 32.5 pg (26.0-34.0); MCHC 32.6 g/dL (28.0-37.0); MCV 99.7 fL (80.0-100.0); MONOCYTES 3.2 % (1.0-8.0); PLATELET COUNT 99 thou/uL (150-400); POLYS 80.3 % (36.0-66.0); RBC 3.65 mil/uL (4.20-5.00); RDW 18.6 % (10.5-14.5); WBC 9.3 thou/uL (4.0-11.0)
[2020-10-20 13:35] LABS: CALCIUM 7.8 mg/dL (8.5-10.1); CREATININE 1.3 mg/dL (0.6-1.0); MAGNESIUM 1.7 mg/dL (1.8-2.4)
--- NOTE | 2020-10-20 14:57 | NUR ---
Check in with pt. Pt. was coughing a lot. Pt. expressed wanting to go home.
[2020-10-20 19:20] VITALS: BP 133/47
--- NOTE | 2020-10-20 23:35 | NUR ---
PATIENT CARE WAS RESUMED AT 1900. SHE IS ALERT AND RT WAS GAVE HER BREATHING TREATMENT AND ALERTED THIS NURSE OF LOW SATS. NURSE ASSESSED PATIENT AND NO DISTRESS NOTED AND PATINET DENIED ANY DISCOMFORT. SAT AND PULSE WAS NOTED AT 73%-100%, 40-196B/M RANGES AT REST. HOSPITALIST ADAM MERLOS, DR. LAURENT WERE NOTIFIED RESPECTIVELY. PATIENT WAS STARTED ON 02 AT 2L/NC AND WAS INCREASED TO 3L/NC DUE TO CONTINIOUS FLUCTUATION OF READING.INSPECTION SUPERVISOR AND THE HOSPITALIST CAME BY AND ASSESSED THE PATIENT. PULSE OXIMETERY WERE APPLIED TO EAR LOBE FOR STEADINESS. READINGS ARE STABLE AT THIS TIME. SHE ALSO GOT HER SCHEDULED BREATHING TREATMENT PER ORDER. PRN OLANZAPINE 7.5MG GIVEN. PATIENT TOOK ALL HER MEDS.SHE TRIES TO TAKE OFF HER OXYGEN AND STAFF CONTINUES TO ENSURE THAT IT IS IN-SITU. LUNGS ARE CLEAR, NONE PRODUCTIVE COUGH. BS IS ACTIVE X 4QUAD. ABD IS SOFT NONE TENDER.SHE DENIES PAINS/SI/AVH/HI. PATIENT IS CALM AT THIS TIME, CONTINUE CARE AND MONITOR. SHE IS IN THE DAY AREA FOR CLOSE OBSERVATION.
[2020-10-21 06:07] LABS: ABSOLUTE NEUTROPHILS 3.8 thou/uL (1.4-8.2); BASOPHILS 0.2 % (0.0-2.0); EOSINOPHILS 0.5 % (0.0-3.0); LYMPHOCYTES 16.6 % (24.0-44.0); MCHC 32.6 g/dL (28.0-37.0); MCV 98.1 fL (80.0-100.0); MONOCYTES 3.2 % (1.0-8.0); PLATELET COUNT 78 thou/uL (150-400); POLYS 79.5 % (36.0-66.0); RBC 3.06 mil/uL (4.20-5.00); RDW 18.7 % (10.5-14.5); WBC 4.7 thou/uL (4.0-11.0)
[2020-10-21 06:15] LABS: HEMOGLOBIN 9.8 gm/dL (12.0-15.0)
[2020-10-21 09:26] VITALS: BP 118/58
--- NOTE | 2020-10-21 11:44 | NUR ---
Referrals sent to: [facility]
--- NOTE | 2020-10-21 13:20 | NUR ---
PATIENT CARE RESUMED AT 0700, PATIENT IS SITTING IN THE DAY ROOM ON THE VERÓNICA CHAIR, SHE WAS SLEEPING, SHE IS CALM, ON OXYGEN 3L NC, BREATH SOUND INSPIRATORY WHEEZING, ACTIVE BOWEL SOUND WITH SOFT AND ROUNDED ABDOMEN, REGULAR HR, RR EVEN AND NONLABORED, COLOR PINK WITH BRISK CAPILLARY REFILL, PATIENT HAS A NON PRODUCTIVE COUGH, SHE HAD HER SCHEDULED BREATHING TREATMENT, TOOK HER MEDICATION WHOLE, SHE IS INCONTINENT OF BLADDER AND BOWEL, PATIENT IS A MAX ASSIST, NO PAIN REPORTED, NO BEHAVIOR CHANGE, FALL PRECAUTION IN PLACE, PATIENT DENIES SI/HI, WILL CONTINUE TO MONITOR PATIIENT FOR SAFETY AND BEHAVIOR.
--- NOTE | 2020-10-21 17:35 | NUR ---
ERICK recieved a call from Mack, , at [facility]. This was concerning the referral sent to [facility]. Sylvia requested updated notes on the Pt. ERICK was able to send the requested notes. Sylvia stated they would be able to accept the Pt as early as Wednesday. Mack stated the Pt would need to be in a quarantine bed due to not having COVID vaccine. Sylvia stated she would reach out to the DPOA. Sylvia requested ERICK contact Deanthany or Cat at [facility] on Wednesday to follow up on the bed situation and discharge. ERICK will continue to follow.
[2020-10-21 19:30] VITALS: BP 101/52
[2020-10-21 19:35] VITALS: BP 101/52
--- NOTE | 2020-10-21 23:40 | NUR ---
NAPHTHALENE OPERATOR HELPER ACTIVATED FOR INCREASED O2 DEMANDS. PT HAD BEEN AT 3L BUT REQUIRING UP TO 7L TO MAINTAIN O2 SATS. SOLUMEDROL GIVEN, PULMONARY TOILET AND ABLE TO TITRATE O2 BACK DOWN TO 3L. NO NEW ORDERS. SEE RAPID RESPONSE INTERVENTION FOR ADDITIONAL DETAILS.
[2020-10-22 00:53] LABS: BE(vivo) 7.3 mmol/L (-2 to +3); PCO2 59.6 mmHg (35.0-45.0); PO2 71.1 mmHg (80.0-100.0); pH 7.374 (7.360-7.450); sO2 93.5 % (92.0-98.0)
--- NOTE | 2020-10-22 01:46 | NUR ---
PATIENT CARE WAS RESUMED AT 1900. SHE IS ALERT AND VERBALIZE CONCERN. LUNGS ARE CLEAR BS ACTIVE X4 QUADS. SHE IS SOFT FLAT ANF NON TENDER. SHE GOT HER BREATHING TREATMENT AND SAT CONTINUED TO GO DOWN.SHE IS IN THE DAY AREA AND SHE IS A MAX ASSIST. SHE DENIES ANY DISCOMFORT AND INCONTINENT OF BLADDER. PATIENT SAT CONTINUED TO GO DOWN AND CALL FOR REAPID RESPONSE TEAM. SHE IS ON 02 AT 3 LITER SAT AT 94-98%.YELLOW SOCK AND TOP ON.AWAITING ABG TEST REPORT. CONTINUE TO MONITOR.
--- NOTE | 2020-10-22 04:35 | NUR ---
PATIENT IS POSITIVE FOR COVID AND IS TRANSFERING TO [place] [id number]. SHE IS ON 3-4 LITRE 02 PER FACE MASK. SHE IS ALERT TO SELF AND INCONTINENT OF BLADDER. REPORT CALLED TO [address] [place] [place] AND PERSONAL BELONGING ARE TRANSFERED ALONG WITH PATIENT.
[2020-10-22 05:44] LABS: BASOPHILS 0.1 % (0.0-2.0); HEMATOCRIT 32.3 % (37.0-47.0); HEMOGLOBIN 10.3 gm/dL (12.0-15.0); LYMPHOCYTES 15.1 % (24.0-44.0); MCH 31.8 pg (26.0-34.0); MCHC 32.1 g/dL (28.0-37.0); MONOCYTES 1.2 % (1.0-8.0); PLATELET COUNT 76 thou/uL (150-400); POLYS 83.6 % (36.0-66.0); RBC 3.26 mil/uL (4.20-5.00); RDW 19.2 % (10.5-14.5); WBC 2.4 thou/uL (4.0-11.0)
--- NOTE | 2020-10-22 11:26 | NUR ---
ERICK recieved a call from Cat at [facility]. Cat stated they are able to accept the Pt today and wanted to set up discharge. SW informed the Pt tested positive for COVID on 10/21/2020, is symptomatic, and is now on a medical floor. Cat informed they may be able to accept the Pt after 10 days of isolation. Also that [facility] and [facility] are accepting COVID+ Pt's at this time.
--- NOTE | 2020-10-23 08:02 | EKG ---
[place] [address] [facility] [place] [address] ELECTROCARDIOGRAM REPORT Name: EDU PICKARD Steve Room #: [facility] IN M.R.#: [id number] Admission: 10/02/20 Attend Phys: Andres Cruz DO Discharge: 10/22/20 Date of : 40 Report #: [id number] [facility] Test Date: 2020-10-21 Test Time: 15:29:50 Pat Name: EDU PICKARD Department: Room: [facility] Gender: F Horse Riding Coach Or Instructor: SAMANTA : 1940 Requested By: Sharon Hernadez Order Number: [id number] MD: Kota Mariee Measurements Intervals [place] Rate: 66 P: 31 [place]: 148 QRS: 9 QRSD: 99 T: 125 QT: 407 QTc: 427 Interpretive Statements Sinus rhythm Inferior infarct, posterior extension, old Lateral leads are also involved Baseline wander in lead(s) V4 No previous ECG available for comparison Electronically Signed On 10-23-2020 8:02:29 CDT by Kota Mariee [email or web address] <ELECTRONICALLY SIGNED> By: Kota Mariee MD, [facility] 10/23/20801 1529 1529 Kota Mariee MD, [facility] /EPI
== END 2020-10-22 05:00 | disposition short-term general hospital (02) | DRG 56 ==
LOC: SBH
PROVIDERS: Hospitalist; Internal Medicine; Nurse Practitioner Family; Psychiatry & Neurology Psychiatry; ADMIT Psychiatry & Neurology Psychiatry; ATTEND Psychiatry & Neurology Psychiatry
DX: G30.9 Alzheimer's disease, unspecified (principal); F02.81 Dementia in other diseases classified elsewhere, unspecified severity, with behavioral disturbance; L89.313 Pressure ulcer of right buttock, stage 3; U07.1 COVID-19; N18.30 Chronic kidney disease, stage 3 unspecified; J96.01 Acute respiratory failure with hypoxia; L03.116 Cellulitis of left lower limb; L03.115 Cellulitis of right lower limb; F01.51 Vascular dementia, unspecified severity, with behavioral disturbance; R45.851 Suicidal ideations; F29 Unspecified psychosis not due to a substance or known physiological condition; J40 Bronchitis, not specified as acute or chronic; I12.9 Hypertensive chronic kidney disease with stage 1 through stage 4 chronic kidney disease, or unspecified chronic kidney disease; E03.9 Hypothyroidism, unspecified; Z66 Do not resuscitate; M25.512 Pain in left shoulder; M25.511 Pain in right shoulder; Z79.899 Other long term (current) drug therapy; F41.9 Anxiety disorder, unspecified; F32.9 Major depressive disorder, single episode, unspecified; Z87.440 Personal history of urinary (tract) infections; E11.40 Type 2 diabetes mellitus with diabetic neuropathy, unspecified; Z79.4 Long term (current) use of insulin; F60.9 Personality disorder, unspecified; E11.622 Type 2 diabetes mellitus with other skin ulcer; L98.491 Non-pressure chronic ulcer of skin of other sites limited to breakdown of skin; Z62.820 Parent-biological child conflict; R62.7 Adult failure to thrive; Z68.31 Body mass index [BMI] 31.0-31.9, adult
CPT/HCPCS: 10880

== ENCOUNTER 2020-10-02 16:50 | Emergency (ER) | payer OTHER, MEDICARE ==
[~2020-10-02] VITALS: Ht 149.9 cm; Wt 63.5 kg
[2020-10-02 19:07] VITALS: BP 178/83
== END 2020-10-02 19:30 ==
LOC: ER 16:50
DX: F91.9 Conduct disorder, unspecified (principal); Z20.822 Contact with and (suspected) exposure to COVID-19; E11.9 Type 2 diabetes mellitus without complications; J45.909 Unspecified asthma, uncomplicated; G62.9 Polyneuropathy, unspecified; I10 Essential (primary) hypertension; E78.00 Pure hypercholesterolemia, unspecified; Z79.84 Long term (current) use of oral hypoglycemic drugs; Z79.899 Other long term (current) drug therapy; Z79.891 Long term (current) use of opiate analgesic

== ENCOUNTER 2020-10-22 04:44 | Inpatient (IN) | payer OTHER, MEDICARE ==
[~2020-10-22] VITALS: Ht 149.9 cm; Wt 71.0 kg
[~2020-10-22 04:44] MED LIST changes: +ARICEPT10 M1 PO; +CITALOPRAM HBR40 MG PO; +FOLIC ACID1 MG PO; +LEVOTHYROXINE88 MC1 PO; +MELOXICAM15 MG PO; +METHOTREXATE 22.5 M1 PO; +NAMENDA 10 MG T10 MG PO; +NEXIUM 40 MG CA40 M1 PO
[2020-10-22 05:18] VITALS: BP 115/43
--- NOTE | 2020-10-22 06:44 | NUR ---
Pt admitted to [address] [place] [address] at about 0500. Oriented to self and place. Falls in and out of sleep. Able to answer some admission questions. Pt was on 6L via face mask upon admission. O2 sat was ranging 96-99%. O2 titrated down to 3L, sat remains in high 90's. Pt titrated to NC on 3L. Pt desatts in the 70's. Pt put back on face mask on 4L. Sats back up to high 90's. Fall precaution in place. Will continue to monitor.
[2020-10-22 08:36] VITALS: BP 133/62
[2020-10-22 14:15] LABS: CREATININE 1.2 mg/dL (0.6-1.0); POTASSIUM 4.8 mmol/L (3.5-5.1)
[2020-10-22 17:30] VITALS: BP 141/50
[2020-10-22 19:33] VITALS: BP 116/88
--- NOTE | 2020-10-22 19:53 | NUR ---
ASSUMED PATIENT CARE AT 0700. OPEN EYE TO VOICE IN AM. CALLED GULSHAN FAYE AT 0830 LET HIM KNOW PATIENT BEEN ADMIT TO [address] LAST NIGHT [address] TP COVID. DR RODRIGUEZ CALLED GULSHAN TO UPDATE TOO. RN RECEIVED DPOA CALL BACK THAT HE IS ACCEPTED COMFORT CARE FOR PATIENT. HE DOESN'T WANT PATIENT IN PAIN AND SUFER. PATIENT GETTING MORE ALERT THROUGHOUT THE DAY. ABLE TO FINISH 50% DINER. UPDATED TO DR RODRIGUEZ. STILL ON 4L/NC. SLOWLY TOWARD SPOC GOALS.
[2020-10-23 03:13] VITALS: BP 122/70
[2020-10-23 03:22] LABS: HEMATOCRIT 30.7 % (37.0-47.0); MCH 32.2 pg (26.0-34.0); MCHC 32.5 g/dL (28.0-37.0); MCV 99.1 fL (80.0-100.0); RBC 3.09 mil/uL (4.20-5.00); RDW 18.2 % (10.5-14.5); WBC 3.7 thou/uL (4.0-11.0)
--- NOTE | 2020-10-23 04:50 | NUR ---
O2 at 4L/NC at start of shift the titrated down to 2L this am and still maintaining O2 sat in the mid to upper 90's. Pt. is confused , intermittently takes off oxygen and heart monitor. Reorientation given. At HS she continously has been talking to herself then she started hollering. Haldol 2 mg IV given with some help. She requested snacks and something to drink. She slept some. Repositioned for comfort. Incontinent of bm x2 then external female cath in place. Z guard applied to buttocks. Spoke with son to give update on pt. last night.
[2020-10-23 05:17] LABS: CALCIUM 7.5 mg/dL (8.5-10.1); CREATININE 0.9 mg/dL (0.6-1.0); POTASSIUM 4.8 mmol/L (3.5-5.1); TOTAL BILIRUBIN 0.2 mg/dL (0.2-1.0); TOTAL PROTEIN 5.4 g/dL (6.4-8.2)
[2020-10-23 08:13] VITALS: BP 128/54
[2020-10-23 15:13] VITALS: BP 123/59
--- NOTE | 2020-10-23 16:33 | NUR ---
PT IS ALERT TO SELF AND WHERE SHE IS AT. PT IS CONFUSED. SHE TAKES OFF NC AT TIMES. EDUCATED PT TO KEEP NC ON. SPOKE WITH SON AND DAUGHTER TODAY. SON WANTED TO TALK TO DR. RODRIGUEZ REGARDING WHAT THE NEXT STEPS ARE. SPOKE WITH DR. RODRIGUEZ AND SHE STATED SHE WILL CALL SON. WOUND CARE CHANGED DRESSINGS TODAY. NO COMPLAINTS OF PAIN OR DISCOMFORT AT THIS TIME.
[2020-10-23 20:10] VITALS: BP 145/76
--- NOTE | 2020-10-24 03:48 | NUR ---
Pt. has been more calm and cooperative. She has been repositioned for comfort. Cont. on enhanced precaution , afebrile. Maintaining O2 sat in the upper 90's on 2L/NC. Incontinent of bowel and bladder. Female external cath in place. Z guard applied to buttocks. Dressing intact on feet. PRAFO boots on though she requested it off this am stating she can't sleep with it on her feet.
[2020-10-24 04:39] VITALS: BP 151/74
[2020-10-24 05:46] LABS: ALBUMIN 2.2 g/dL (3.4-5.0); CREATININE 0.9 mg/dL (0.6-1.0); DIRECT BILIRUBIN 0.1 mg/dL (<0.1-0.2); PHOSPHORUS 2.3 mg/dL (2.5-4.9); POTASSIUM 4.2 mmol/L (3.5-5.1); TOTAL BILIRUBIN 0.2 mg/dL (0.2-1.0); TOTAL PROTEIN 5.7 g/dL (6.4-8.2)
[2020-10-24 09:14] VITALS: BP 130/62
--- NOTE | 2020-10-24 10:49 | NUR ---
PT IS ALERT TO SELF AND WHERE SHE IS AT. PT WAS REFUSING TO KEEP ON OXYGEN THIS AM WHEN FIRST SEEING PT. SPOKE TO PT IN DEPTH ABOUT THE NEED FOR OXYGEN. PT VERBALIZED UNDERSTANDING AND AGREED TO WEAR OXYGEN AND KEEP OXYGEN ON. PT HAS KEPT OXYGEN ON SINCE. PT IS NOT WANTING TO WEAR BOOTS FOR WOUND PROTECTION ON FEET. WHEN THEY ARE ON, SHE ASKS AFTER A FEW MINUTES TO HAVE THEM TAKEN OFF. INFORMED WOUND CARE AND PER WOUND DR, PT CAN HAVE BREAKS FROM BOOTS AND JUST CONTINUE TRYING TO GET THE BOOTS ON MUCH POSSIBLE. SPOKE TO SON THIS AM TO GIVE SON UPDATE ON PT CONDITION. PT DENIES PAIN OR DISCOMFORT AT THIS TIME.
[2020-10-24 15:55] VITALS: BP 131/93
--- NOTE | 2020-10-24 16:21 | NUR ---
INITIAL ASSESSMENT: Received consult. ERICK reviewed chart and spoke with nursing and attending physician. Pt was admitted to from [facility] due to having positive COVID test on 10/21. Pt has not received a COVID vaccine. Pt placed in Enhanced Isolation. Pt was scheduled to discharge to [facility] on Wednesday, 10/22. Pt is afebrile and on 2L of O2. Pt is on IV abx and Remdesivir. Palliative care consulted to discuss plan of care and treatment goals with pt's family. ERICK faxed clinical info to [place] post-acute liaison for review. Pt will need to go to an alternate facility prior to going to [facility] due to being COVID positive. Awaiting input from palliative care at this time. ERICK is following to assist as needed with discharge planning.
--- NOTE | 2020-10-24 17:16 | NUR ---
PT IS CONSTANTLY TAKING OXYGEN OFF EVERY 5 MINUTES AND REFUSES TO KEEP OXYGEN OFF. EDUCATED PT BUT PT INSISTS SHE DOES NOT NEED THE OXYGEN. O2 SAT GETS DOWN TO LOW 80s. SPOKE TO DR. RODRIGUEZ AT 16:57. DR. RODRIGUEZ WANTS PSYCHIATRY'S INPUT. PAGED PSYCHIATRY AT 17:02 AND SPOKE TO AMI FOR CALL BACK. PT HAS NO PRN MEDICATION. WILL WAIT FOR RECOMMENDATIONS FROM PSYCHIATRY.
--- NOTE | 2020-10-24 17:50 | NUR ---
PT CONTINUES TO TAKE OXYGEN AND O2 SAT OFF. PT IS YELLING STATING THAT SHE DOES NOT NEED ANY HELP AND SHE IS JUST FINE. SHE SAID THAT THIS IS HER HOME. 2 MINUTES AFTER PUTTING OXYGEN ON, PT TAKES OFF THE OXYGEN. PT IS AGGRESSIVE WHEN TRYING TO PUT ON NASAL CANULA BY SWATTING AT MY HANDS. PUT O2 SAT ON PT FINGER FROM HEAD AND PT PULLS AT THE CORD AND PULLS IT OFF. UNABLE TO REDIRECT PT. WAITING FOR PSYCHIATRY TO CALL BACK.
--- NOTE | 2020-10-24 19:08 | NUR ---
GAVE PRN HALDOL TO PT. SPOKE WITH DR. RODRIGUEZ AND RECEIVED ORDERS FOR SOFT WRIST RESTRAINTS DUE TO PT BEING SWATTING AT STAFF AND NOT KEEPING OXYGEN ON AND PULLING AT LINES. LEFT MESSAGE FOR SON NEYDA TO CALL BACK TO NOTIFY OF RESTRAINTS. NOTIFIED PORT TRAFFIC MANAGER.
--- NOTE | 2020-10-24 19:16 | NUR ---
SPOKE WITH SON NEYDA TO NOTIFY OF PT BEING IN RESTRAINTS. SON VERBALIZED UNDERSTANDING.
[2020-10-24 20:12] VITALS: BP 148/79
[2020-10-25 04:58] VITALS: BP 149/87
[2020-10-25 07:56] VITALS: BP 148/109
--- NOTE | 2020-10-25 09:25 | HC ---
[facility] [place] [address] CONSULTATION Name: EDU PICKARD Room #: 362- ADM IN M.R.#: [id number] Admission: 10/22/20 Attend Phys: Shaye Puga MD Discharge: Date of : 40 Report #: [id number] THIS REPORT FOR: cc: CRAIG FARRAR MD Physician not on staff Ravi Manning MD ~ DATE OF SERVICE: 10/23/2020 ATTENDING PHYSICIAN: Dr. Puga. REASON FOR EVALUATION: COVID-19 infection complicated by pneumonitis and respiratory failure. HISTORY OF PRESENT ILLNESS: The patient was examined. This is an 80-year-old who is up on the Unit, who has an extensive medical history including diabetes mellitus as well as fairly profound dementia, depression and anxiety, who was noted to have aggressive respiratory difficulties, felt impending respiratory failure. She was transferred to the acute care side. She is now maintained on supplemental oxygen at 4 liters per nasal cannula. At this point, she denies significant amount of pain. She is mildly anxious. Evaluation ABG showed pH of 7.374, pCO2 of 59.6 and pO2 of 71.1 on 7 liters. She was confirmed to have a positive rodriguez virus test. She has not had fevers, so empirically started on therapy with azithromycin and ceftriaxone. ALLERGIES: None known. CURRENT MEDICATIONS: Include lorazepam, Haldol, budesonide, given methylprednisolone, azithromycin and ceftriaxone on one time basis. PAST MEDICAL HISTORY: Diabetes mellitus, reflux, hypertension, depression, anxiety, dementia, hyperlipidemia, hypothyroidism, asthma, bilateral lower extremity venous stasis, iron-deficiency anemia, degenerative joint disease and osteopenia. SOCIAL AND FAMILY HISTORY: Available in chart. REVIEW OF SYSTEMS: Otherwise, unremarkable. PHYSICAL EXAMINATION: GENERAL: She appears chronically ill and undernourished. She is confused, mild to moderate distress. VITAL SIGNS: Temperature 97.7, pulse 86, respirations 18 and blood pressure 128/54. SKIN: Warm, dry. No rashes. HEENT: Normocephalic. Extraocular muscles intact. Nasal cannula in place. NECK: Supple. [facility] [address] [place] [address] CONSULTATION Name: EDU PICKARD Room #: 362-P [facility] IN ..#: [id number] Admission: 10/22/20 Attend Phys: Shaye Puga MD Discharge: Date of : 40 Report #: [id number] LUNGS: Few scattered coarse breath sounds. HEART: Irregular. ABDOMEN: Soft, nontender. EXTREMITIES: No cyanosis. GENITOURINARY AND RECTAL: Deferred. LABORATORY DATA: Electrolytes: Sodium 145, potassium 4.8, chloride 107, bicarbonate is 30, anion gap of 8, BUN and creatinine 16 and 0.9, glucose of 120, albumin of 2.0, total protein 5.4. CBC: White count of 3.7, H and H 10.0 and 30.7, platelets of 276. ASSESSMENT AND PLAN: COVID-19 infection, complicated by pneumonitis and respiratory failure. She remains quite tenuous at this point. Continue use of supplemental oxygen. Chest flow and concentration as required to maintain saturations. There was some discussion about aggressiveness of future care as well. We will continue the antibiotics as instructed. This does not pursue this level of treatment. Monitor expectantly. Continue supportive care. <ELECTRONICALLY SIGNED> By: Ravi Manning MD 10/25/20 0925 [id number] [id number] Ravi Manning MD /nt
--- NOTE | 2020-10-25 14:23 | NUR ---
ERICK reviewed chart and spoke with nursing and attending physician. Pt remains in Enhanced Isolation due to COVID. Pt is afebrile and on 2L of O2. Pt is on IV abx and Remdesivir. Pt placed in restraints due to agitation. Palliative care consulted and will discuss plan of care with pt's family. No weekend discharge planned. ERICK received call from pt's son/DPOA, Juan C, to request update. Long discussion with Juan C regarding discharge plan. Pt had been accepted to [facility]. Juan C asked if there were any alternate options. ERICK to review referrals that were sent from [facility]. ERICK explained that now barrier is pt's COVID status and isolation requirements. Pt's son states that they would prefer [facility], [facility], or [facility] ERICK to review previous referrals and send referrals on Wednesday. ERICK is following to assist as needed with discharge planning.
[2020-10-25 15:54] VITALS: BP 147/113
[2020-10-25 16:10] VITALS: BP 145/92
[2020-10-25 18:23] LABS: ALBUMIN 2.5 g/dL (3.4-5.0); CALCIUM 8.1 mg/dL (8.5-10.1); CREATININE 0.8 mg/dL (0.6-1.0); DIRECT BILIRUBIN 0.1 mg/dL (<0.1-0.2); PHOSPHORUS 2.6 mg/dL (2.6-4.7); POTASSIUM 4.2 mmol/L (3.5-5.1); TOTAL BILIRUBIN 0.4 mg/dL (0.2-1.0); TOTAL PROTEIN 5.9 g/dL (6.4-8.2)
--- NOTE | 2020-10-25 19:54 | NUR ---
Pt educated this morning on restraint necessity and given trial during which time she was cooperative. Restraints removed within the 10:00 hour. Patient required some reducation regarding removing O2 cannula, but remained calm for the rest of the day. Pt dypsneic and with repositioning and ashley care. O2 delivery increased to 3L temporarily to maintain POX >92%. Patient repositioned Q2hr for skin care. Barrier cream applied to ashley area - redness and some moisture damage noted on BL buttocks.
[2020-10-25 20:21] VITALS: BP 126/83
[2020-10-26 05:10] VITALS: BP 130/95
[2020-10-26 06:46] LABS: ALBUMIN 2.1 g/dL (3.4-5.0); CALCIUM 7.8 mg/dL (8.5-10.1); CREATININE 0.8 mg/dL (0.6-1.0); DIRECT BILIRUBIN 0.2 mg/dL (<0.1-0.2); PHOSPHORUS 3.6 mg/dL (2.5-4.9); POTASSIUM 3.6 mmol/L (3.5-5.1); TOTAL BILIRUBIN 0.3 mg/dL (0.2-1.0); TOTAL PROTEIN 5.5 g/dL (6.4-8.2)
[2020-10-26 07:26] VITALS: BP 138/53
[2020-10-26 15:19] VITALS: BP 145/65
--- NOTE | 2020-10-26 19:49 | NUR ---
Pt remains lethargic, minimally responsive to touch, unresponsive to voice. Likely due to response to haldol, as discussed with Dr Puga this morning. No sedatives given during 7a-7p shift, VS reamain stable, POX >92% on 3L NC. Suction set up for oral suctioning PRN as pt has productive cough. Report given to HAKAN Garcia. Pt resting in bed at this time.
[2020-10-26 19:55] VITALS: BP 155/86
--- NOTE | 2020-10-27 00:43 | NUR ---
PT AGAIN IN RESTRAINTS DUE TO REMOVAL OF NASAL CANNULA, TELE EQUIPMENT AND CONTINUOS PULSE OX. ATTEMPTED TO REDIRECT, PRN GIVEN WITHOUT SUCCESS. PT ALSO COMBATIVE. RECEIVED ORDER FOR BILATERAL SOFT WRIST RESTRAINTS. NOTIFIED ALL APPROPRIATE PARTIES.
[2020-10-27 05:00] LABS: CALCIUM 7.8 mg/dL (8.5-10.1); CREATININE 0.8 mg/dL (0.6-1.0); DIRECT BILIRUBIN 0.2 mg/dL (<0.1-0.2); PHOSPHORUS 3.6 mg/dL (2.5-4.9); POTASSIUM 4.2 mmol/L (3.5-5.1); TOTAL BILIRUBIN 0.4 mg/dL (0.2-1.0); TOTAL PROTEIN 5.5 g/dL (6.4-8.2)
[2020-10-27 05:06] VITALS: BP 149/78
[2020-10-27 07:56] VITALS: BP 155/58
[2020-10-27 17:05] VITALS: BP 140/104
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
[2020-10-27 17:39] VITALS: BP 160/64
--- NOTE | 2020-10-27 18:33 | NUR ---
ASSUMED PATIENT CARE AT 0700. AWAKE. CONFUSED. POOR APPATITE, ON SALOME WRIST RESTRAINT. INCREASED 02 TO 12L/NC. NOT TOWARDS POC GOALS.
[2020-10-27 20:43] VITALS: BP 125/97
--- NOTE | 2020-10-28 01:57 | NUR ---
PT SON CALLED UNIT AT START OF SHIFT AND THIS NURSE UPDATED ON PROGREE. SON STATED HE WANTS TO BE NOTIFIED ON ANY CHANGE OF EVENT. PT NOW ON 12L OF O2 STILL ON RESTRAINTS, RESTLESS AND PULLING OUT TELE ELECTRODES. IM HALDOL GIVEN. SUCTION PROVIDED TO PT. IV INTACT AND FLUIDS INFUSING. PT INCONTINENT. PERICARE GIVEN. HAD A BM. WILL CONT WITH POC TILL EOS.
[2020-10-28 06:15] VITALS: BP 197/79
[2020-10-28 07:53] VITALS: BP 185/74
--- NOTE | 2020-10-28 18:36 | NUR ---
ASSUMED PATIENT CARE AT 0700. AWAKE. ON 4-5L/NC 02. ON SALOME WRIST RESTRAINT. REFUSED TO EAT. NOT TOWARDS POC GOALS.
[2020-10-28 19:35] VITALS: BP 154/93
[2020-10-29 04:22] VITALS: BP 149/62
--- NOTE | 2020-10-29 06:10 | NUR ---
Dr. Puga spoke with day RN about comfort care oder. Son called last night to get an update on pt. Pt. is oriented to person and very confused. O2 at 2L/NC for comfort. Oral care done and suction orally prn per megan.Anthony soft wrist restraints dc'd. Summers cath placed per order for comfort measures. Z guard applied to buttocks. Repositioned prn. Lorazepam given with help. She has slept most of the night since it was given and rested comfortably.
[2020-10-29 07:54] VITALS: BP 143/110
--- NOTE | 2020-10-29 16:48 | NUR ---
ERICK reviewed chart and spoke with nursing and attending physician. Pt remains in Enhanced Isolation due to COVID. Comfort measures have been initiated. ERICK spoke with pt's son, Juan C, via phone to provide update and discuss plan of care. ERICK discussed possible discharge to [facility] if pt meets admission criteria for the hospice house v. going to a LTC facility with hospice. ERICK explained the financial aspects of the two levels of care. Pt's son states he would be okay with pt remaining at [facility] on comfort care. He states that he was told that family members are able to come see pt for 15 minutes at a time. Pt's dtr is driving to from [place] this evening to be able to see pt tomorrow. Unsure who gave pt's son this info. ERICK left voice message for the boardinghouse keeper and sent email to unit mgr and CNO. ERICK is following to assist as needed with discharge planning.
--- NOTE | 2020-10-29 18:29 | NUR ---
PT ON COMFORT CARE MEASURES. TOOK JUST A FEW BITES OF DINNER, ONLY 5% OF BREAKFAST. PT IS AGITATED, AND OFTEN REMOVES OXYGEN. PT TOLERATES POSITION CHANGE WELL AT THIS TIME.
[2020-10-29 19:31] VITALS: BP 150/89
--- NOTE | 2020-10-30 03:20 | NUR ---
Pt. requested jello and something to drink at beginning of shift adn took few bites and few sips. She has been repositioned prn for comfort. Lorazepam given at HS for comfort. She rested well majority of the night. O2 at 2L /NC to keep her comfortable.
[2020-10-30 08:00] VITALS: BP 144/70
--- NOTE | 2020-10-30 14:23 | NUR ---
ERICK reviewed chart and spoke with nursing and attending physician. Pt remains in Enhanced Isolation due to COVID. Pt remains on comfort care measures. Pt's dtr will be coming to visit pt today. Pt's nurse is aware. ERICK discussed with unit tender. ERICK left voice message for pt's son, Juan C, to discuss possible referral to [facility]. ERICK is following to assist as needed with discharge planning.
[2020-10-30 16:05] VITALS: BP 156/95
[2020-10-30 20:13] VITALS: BP 146/88
--- NOTE | 2020-10-30 20:15 | NUR ---
RN ASSUMED PT'S CARE AT 0700-1900PM, PT IS CONFUSED, AND SHE IS ON IMPULSIVE AT TIME, PT IS CONTINUING COMFORT CARE , PT'S ORAL CARE AND SKIN CARE HAVS DONE, PT IS RELAXING AT MOST OF TIME , PT IS CONFORTABLE AT DAY SHFIT.
--- NOTE | 2020-10-31 04:49 | NUR ---
Pt. has been awake most of the night and only slept some. Lorazepam given for anxiety. Repositioned prn. O2 at 2L/NC for comfort. Denies being in pain.
[2020-10-31 08:14] VITALS: BP 144/71
[2020-10-31 08:30] VITALS: BP 144/71
--- NOTE | 2020-10-31 14:18 | NUR ---
ERICK reviewed chart and spoke with nursing and attending physician. Pt remains in Enhanced Isolation due to COVID. Pt remains on comfort care measures. ERICK spoke sabino Reyes at [facility], who states that pt does meet admission criteria for the [facility]. Pt is on the waiting list for a room, when one becomes available. ERICK spoke with pt's son, Juan C, to provide update. ERICK explained process for transfer when a bed becomes available. Juan C verbalized understanding and is agreeable with discharge plan. ERICK faxed ambulance form to 3[address] to place on chart. ERICK updated attending physician. Requested Outside the Hospital DNR form to be signed and placed on pt's chart. [facility] to notify SW or 3W when a room is available. Discharge ppwk will need to be faxed to the Hospice. [facility] will need to be called to arrange ambulance transportation. ERICK faxed ambulance form to [facility]. No chart copy needed. Nursing will need to call report. Family to be notified of discharge. ERICK is following to assist as needed with discharge planning. [facility]-- FAX: [phone] [facility]--
--- NOTE | 2020-10-31 18:39 | NUR ---
RN ASSUMED PT'S CARE AT 0700AM, PT KNOWS HER NAME AND SHE CAN FOLLOW SOME COMMANDS, BUT PT IS CONFUSED , PT IS RELAXING AND SLEEPING AT MOST OF TIME AT DAY SHIFT, PT EATS SOME DINNER ( 30% ) WITH ASSIST, PT'S REAL CARE AND SKIN CARE HAVE DONE, PT IS COMFORTABLE BY THIS TIME.
[2020-10-31 20:35] VITALS: BP 148/102
--- NOTE | 2020-11-01 03:03 | NUR ---
PROGRESS PT ALERT, YELLING OUT, REMOVING O2 AND TELE PACK FREQUENTLY. HALDOL GIVEN WITH EFFECT PT SLEEPING AFTER. REPOSITIONED NEEDED, AND OFFERED WATER WITH ROUNDS. PERICARE AND WOUND CARE COMPLETED ORDERED. CONTINUE TO MONITOR.
[2020-11-01 07:26] VITALS: BP 124/55
--- NOTE | 2020-11-01 08:21 | NUR ---
Nutrition: Pt is comfort care, plan D/C to hospice house when bed available.
--- NOTE | 2020-11-01 14:19 | NUR ---
DISCHARGE NOTE: ERICK reviewed chart and spoke with nursing and attending physician. Pt remains in Enhanced Isolation due to COVID. Pt febrile this morning. Pt is on 2-3L of O2. Pt is medically stable for discharge to [facility]. ERICK spoke with Amy at [facility], who states they do have a bed for pt and can accept today. Amy spoke with pt's son/DPOA, Juan C, to discuss admission proceess. Pt's son is agreeable with plan. [facility] requests ambulance transportation to be arranged at 1530. ERICK arranged [facility] to transport pt at 1530. ERICK faxed discharge ppwk and DPOA ppwk to the [facility] and received confirmation. ERICK left voice message for Amy, to notify of transportation arrangements. ERICK spoke with pt's son via phone to provivde update and discuss discharge plan. Juan C is aware and agreeable with discharge plan. Ambulance form and signed outside the hospital DNR Form provided to pt's nurse. Number provided for nursing to call report. No additional SW needs identified at this time, but is available to assist should needs arise.
== END 2020-11-01 15:10 | disposition hospice, inpatient (51) | DRG 177 ==
LOC: 3W 04:44
PROVIDERS: Nurse Practitioner Family; Specialist; ADMIT Hospitalist; ATTEND Hospitalist
PROC: XW033E5 Introduction of Remdesivir Anti-infective into Peripheral Vein, Percutaneous Approach, New Technology Group 5 (ICD-10-PCS; 2020-10-23)
PROC: 5A0935A Assistance with Respiratory Ventilation, Less than 24 Consecutive Hours, High Flow/Velocity Cannula (ICD-10-PCS; principal; 2020-10-27)
DX: U07.1 COVID-19 (principal); L89.153 Pressure ulcer of sacral region, stage 3; J96.01 Acute respiratory failure with hypoxia; J12.82 Pneumonia due to coronavirus disease 2019; E87.0 Hyperosmolality and hypernatremia; D61.818 Other pancytopenia; L03.116 Cellulitis of left lower limb; L03.115 Cellulitis of right lower limb; F02.81 Dementia in other diseases classified elsewhere, unspecified severity, with behavioral disturbance; Z79.899 Other long term (current) drug therapy; F32.9 Major depressive disorder, single episode, unspecified; G30.9 Alzheimer's disease, unspecified; Z79.4 Long term (current) use of insulin; E11.621 Type 2 diabetes mellitus with foot ulcer; L97.511 Non-pressure chronic ulcer of other part of right foot limited to breakdown of skin; F41.9 Anxiety disorder, unspecified; E03.9 Hypothyroidism, unspecified; E11.40 Type 2 diabetes mellitus with diabetic neuropathy, unspecified; Z87.891 Personal history of nicotine dependence; D50.9 Iron deficiency anemia, unspecified; Z66 Do not resuscitate; I87.8 Other specified disorders of veins; I12.9 Hypertensive chronic kidney disease with stage 1 through stage 4 chronic kidney disease, or unspecified chronic kidney disease; E11.22 Type 2 diabetes mellitus with diabetic chronic kidney disease; N18.30 Chronic kidney disease, stage 3 unspecified; K21.9 Gastro-esophageal reflux disease without esophagitis
CPT/HCPCS: 10080; 10879